=== PATIENT | male | born 1960 | race African-American/Black ===

== ENCOUNTER 2022-07-05 21:30 | Emergency (ER) | payer OTHER, SELFPAY ==
[2022-07-05 22:00] VITALS: BP 136/84; PULSE 87; RESP 16; TEMP 36.4; O2SAT 99; BMI 27.3
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
[2022-07-06 02:44] VITALS: BP 134/78; PULSE 99; RESP 16; TEMP 36.6; O2SAT 99
[2022-07-06] MEDS: Acetaminophen 325 MG TABLET 975 MG PO (03:05)
[2022-07-06] MEDS: Ibuprofen 400 MG TABLET PO (03:05)
[2022-07-06] MEDS: Lidocaine 4 % Patch ADH..PATCH 1 PATCH TRANSDERMA (03:06)
== END 2022-07-06 03:23 | disposition home or self-care (01) ==
PROVIDERS: Emergency Provider Student in an Organized Health Care Education/Training Program
DX: Z04.1 Encounter for examination and observation following transport accident (principal); M79.18 Myalgia, other site; M54.2 Cervicalgia
CPT/HCPCS: 99283; 99284